=== PATIENT | female | born 2000 | race Caucasian/White ===

== ENCOUNTER 2023-06-27 14:03 | Emergency (ER) | payer OTHER, BC ==
[~2023-06-27] VITALS: Ht 154.9 cm; Wt 68.0 kg
[2023-06-27 16:14] VITALS: BP 124/72
== END 2023-06-27 16:15 | disposition home or self-care (01) ==
LOC: ED 14:03
DX: S30.0XXA Contusion of lower back and pelvis, initial encounter (principal); W10.9XXA Fall (on) (from) unspecified stairs and steps, initial encounter
CPT/HCPCS: 99283